=== PATIENT | female | born 1960 | race Caucasian/White ===

== ENCOUNTER → 2017-02-01 | Outpatient (CLI) | payer OTHER ==
[~2017-02-01] MED LIST: ACETAMINOPHEN PO; ALPRAZOLAM PO; ASPIRIN81 M2 PO; B COMPLEX1 TAB PO; BYDUREON P2 MG/0.65; COUMADIN7.5 MG PO; DICLOFENAC PO; FARXIGA10 MG PO; GENTLE LAXATIVE10 MG PR; GLIMEPIRIDE1 M1 PO; LANTUS100 U/ML SUBQ; LIPITOR PO; LOVENOX40 MG/0.4 INJ; METFORMIN PO; MULTI VITAMIN1 EACH PO; MULTIPLE VITAMI1 T13 PO; NOVOLOG100 U/ML; PERCOCET 10/3251 TAB PO; PERCOCET5/325 PO; SENNA S TABLET1 TAB PO; VICTOZA0.6 MG/0.1 SUBQ; ZOFRAN PO; ZOLPIDEM TARTRA10 M1 PO; ZOLPIDEM TARTRA10 MG PO
--- NOTE | ~2017-02-01 | EKG ---
PATIENT: WALTER RO UNIT #: [id number] Ventricular Rate: 82 BPM Atrial Rate: 82 BPM P-R Interval: 160 ms QRS Duration: 84 ms Q-T Interval: 370 ms QTC Calculation(Bezet): 432 ms P [place]: 57 degrees Calculated R [place]: 22 degrees Calculated T [place]: 37 degrees Diagnosis Line: Normal sinus rhythm Diagnosis Line: Normal ECG Diagnosis Line: When compared with ECG of 05-AUG-2016 17:50, Diagnosis Line: Non-specific change in ST segment in Inferior Diagnosis Line: leads Diagnosis Line: Nonspecific T wave abnormality no longer evident Diagnosis Line: in Inferior leads Diagnosis Line: Nonspecific T wave abnormality no longer evident Diagnosis Line: in Anterolateral leads Diagnosis Line: Confirmed by JAMAR GARCIA MD ([id number]) on Diagnosis Line: 02/02/2017 6:44:44 AM INTERPRETING MD: CHRISSY
--- NOTE | ~2017-02-01 | CR63 ---
[facility] A Service of [facility] RADIOLOGY TEXT RESULTS PATIENT: WALTER RO LOCATION: [facility] : 64 UNIT #: [id number] AGE: [address]: Sunil Cevallos MD SEX: F ORDER DR: [id number] [facility] [address] [place], [place] [address] [id number] O MR#: [id number] Acc #: [id number] NAME: WALTER RO : 1960 SEX: F STUDY DATE/TIME: 02/01/2017 11:42 UNIT: [facility] ROOM: STUDY DESCRIPTION: CR Chest 2 View Attending Physician: Sunil Cevallos M.D. Referring Physician: Sunil Cevallos M.D. Ordering Physician: Sunil Cevallos M.D. Primary Care Physician: Nellie Littlejohn M.D. MEDICAL IMAGING REPORT This report is preliminary unless electronic signature is present EXAM Chest PA and lateral, 02/01/2017 HISTORY Preop manipulation of bilateral total knee prosthesis. Benign essential hypertension and diabetes and fatigue. Shortness of breath on exertion. FINDINGS PA and lateral examination of the chest upright shows a good expansion of the parenchyma with a normal distribution of the pulmonary vascularity. There is no indication of congestion, effusion, infiltrate, tumor, or nodular density. The pleural reflections and diaphragmatic contours are normal. The cardiac silhouette and mediastinal anatomy is within normal limits. IMPRESSION Normal chest. Dictated by... William Helm M.D. THIS IS AN ELECTRONICALLY VERIFIED REPORT William Helm M.D. at 02/02/2017 8:27 AM AMADOR/gautam TD: 02/01/2017 19:28 JOB #: [id number] MEDICAL IMAGING REPORT Page 1 of 1 COPY
[2017-02-01 11:42] LABS: HEMATOCRIT 40.7 % (35.0-45.0); HEMOGLOBIN 13.2 gm/dL (12.0-16.0); MEAN CELL VOLUME 85.6 FL (83-96); MEAN CORPUSCULAR HEMOGLOBIN 27.8 PG (28-34); MEAN CORPUSCULAR HGB CONC 32.5 g/dL (30-36); MEAN PLATELET VOLUME 7.9 FL (6.5-11.5); RED BLOOD COUNT 4.75 X10e (3.90-5.30); RED CELL DISTRIBUTION WIDTH 13.7 % (11.0-15.5); WHITE BLOOD COUNT 6.2 X10e3 (4.0-10.5)
[2017-02-01 12:10] LABS: URINE APPEARANCE CLEAR; URINE BILIRUBIN NEG (NEG); URINE BLOOD NEG (NEG); URINE COLOR YELLOW; URINE GLUCOSE >1000 MG/DL (NEG); URINE KETONE NEG (NEG); URINE LEUKOCYTE ESTERASE NEG (NEG); URINE NITRATE NEG (NEG); URINE PROTEIN NEG (NEG); URINE UROBILINOGEN 0.2 MG/DL (NEG)
[2017-02-01 12:11] LABS: URINE SOURCE CLEAN CATCH
[2017-02-01 12:13] LABS: CULTURE INDICATED? NO
[2017-02-01 12:45] LABS: CALCIUM SERUM 9.7 mg/dL (8.4-10.2); CREATININE SERUM 0.5 mg/dL (0.6-1.4); POTASSIUM 4.1 mmol/L (3.5-5.1)
== END | disposition home or self-care (01) ==
LOC: CAMB 10:15
PROVIDERS: Orthopaedic Surgery
DX: Z01.818 Encounter for other preprocedural examination (principal); E11.65 Type 2 diabetes mellitus with hyperglycemia; I10 Essential (primary) hypertension; G47.00 Insomnia, unspecified; R53.83 Other fatigue; M24.662 Ankylosis, left knee
CPT/HCPCS: 36415; 71020; 80048; 81003; 85027; 93005

== ENCOUNTER → 2017-02-05 | Day surgery (SDC) | payer OTHER ==
--- NOTE | ~2017-02-05 | OR ---
Unit #: [id number] #: [id number] Patient: WALTER RO [id number] [address] [place], [place] [address] [id number] O MR#: [id number] NAME: WALTER RO ROOM: Date of Procedure: 02/05/2017 Admission Date: 02/05/2017 Surgeon: Sunil Cevallos M.D. : 1960 Attending Physician: Sunil Cevallos M.D. Primary Care Physician: Nellie Littlejohn M.D. OPERATIVE REPORT PREOPERATIVE DIAGNOSIS Arthrofibrosis, status post bilateral total knees. POSTOPERATIVE DIAGNOSIS Arthrofibrosis, status post bilateral total knees. PROCEDURE PERFORMED Manipulation, both knees. DESCRIPTION OF PROCEDURE The patient was brought to the operating room, given a general anesthetic. After this was done, both knees were manipulated. She actually had fairly good motion preop with flexion to about 105 in full extension. We were able to manipulate both knees with palpable and audible release of adhesions, gaining flexion to about 130. She then had her general anesthetic reversed and was transferred to the recovery room. BLOOD LOSS zero. Dictated by... Linda Silver/paulette TD: 02/05/2017 20:28 JOB #: [id number] OPERATIVE REPORT Page 1 of 1 X Sunil Cevallos MD X PROCEDURE OPERATIVE NOTE
== END | disposition home or self-care (01) ==
LOC: CSUR 06:59
DX: M24.662 Ankylosis, left knee (principal); M24.661 Ankylosis, right knee; I10 Essential (primary) hypertension; E11.9 Type 2 diabetes mellitus without complications; G89.29 Other chronic pain; K21.9 Gastro-esophageal reflux disease without esophagitis; E78.5 Hyperlipidemia, unspecified; Z88.2 Allergy status to sulfonamides; Z79.84 Long term (current) use of oral hypoglycemic drugs; Z79.82 Long term (current) use of aspirin; Z79.899 Other long term (current) drug therapy; Z96.653 Presence of artificial knee joint, bilateral; Z98.890 Other specified postprocedural states
CPT/HCPCS: 82947; J2250; J3010